=== PATIENT | male | born 1985 | race Caucasian/White ===

== ENCOUNTER 2019-07-18 18:24 | Emergency (ER) | payer SELFPAY ==
[2019-07-18] MEDS ORDERED: HYDROCODONE/APAP 10/325 TAB ONE (18:55)
--- NOTE | 2019-07-18 19:07 | RAD REPORT ---
EXAM DESCRIPTION: RAD - Elbow Left 3 View - 07/18/2019 6:59 pm CLINICAL HISTORY: PAIN COMPARISON: No comparisons FINDINGS: Radial head prosthesis is noted. There is mild lucency seen around the shaft of the prosth esis. This can indicate loosening in the correct clinical setting. Prominent arthritic changes are pr esent. No acute fracture seen.
--- NOTE | 2019-07-18 19:27 | ER ---
Nurse's Notes [facility] Name: Noam Christine Age: 34 yrs Sex: Male : 1985 Arrival Date: 07/18/2019 Time: 18:26 Bed 19 Private MD: Diagnosis: Pain in left elbow Presentation: 07/18 18:30 Presenting complaint: Patient states: "I was working at he house and I lifted something aa5 and did something to my left elbow". Transition of care: patient was not received from another setting of care. Onset of symptoms was July 18, 2019. Risk Assessment: Do you want to hurt yourself or someone else? Patient reports no desire to harm self or others. Initial Sepsis Screen: Does the patient meet any 2 criteria? HR > 90 bpm. Does the patient have a suspected source of infection? No. Patient's initial sepsis screen is negative. Care prior to arrival: None. 18:30 Acuity: YOHANA 3 aa5 18:30 Method Of Arrival: Ambulatory aa5 Triage Assessment: 19:10 Injury Description: left elbow pain. wh Historical: - Allergies: 18:32 No Known Allergies; aa5 - PMHx: 18:31 Hypertension; aa5 - PSHx: 18:31 left elbow; left foot; aa5 - Immunization history:: Adult Immunizations unknown. - Social history:: Smoking status: Patient uses tobacco products, smokes one-half pack cigarettes per day. - Ebola Screening: : No symptoms or risks identified at this time. Screenin:49 Abuse screen: Denies threats or abuse. Nutritional screening: No deficits noted. em Tuberculosis screening: No symptoms or risk factors identified. Fall Risk None identified. Assessment: 18:49 General: Appears in no apparent distress. uncomfortable, Behavior is calm, cooperative, em appropriate for age. Pain: Complains of pain in left antecubital area and left elbow Pain currently is 10 out of 10 on a pain scale. Quality of pain is described as sharp, shooting, Pain began 1 hour ago. Neuro: Level of Consciousness is awake, alert, obeys commands, Oriented to person, place, time, situation, Appropriate for age. Cardiovascular: Capillary refill < 3 seconds Patient's skin is warm and dry. Respiratory: Airway is patent Respiratory effort is even, unlabored, Respiratory pattern is regular, symmetrical. Derm: Skin is intact, is healthy with good turgor, Skin is pink, warm \\T\\ dry. Musculoskeletal: Capillary refill < 3 seconds, Range of motion: limited in left elbow. 19:44 Reassessment: Patient appears in no apparent distress at this time. No changes from previously documented assessment. Patient and/or family updated on plan of care and expected duration. Pain level reassessed. Patient is alert, oriented x 3, equal unlabored respirations, skin warm/dry/pink. Vital Signs: 18:31 BP 118 / 81; Pulse 114; Resp 18 S; Temp 98.7(TE); Pulse Ox 99% on R/A; Weight 84.37 kg aa5 (R); Height 5 ft. 7 in. (170.18 cm) (R); Pain 10/10; 19:43 BP 129 / 98; Pulse 93; Resp 18; Pulse Ox 99% on R/A; wh 18:31 Body Mass Index 29.13 (84.37 kg, 170.18 cm) aa5 ED Course: 18:26 Patient arrived in ED. mr 18:30 Arm band placed on. aa5 18:31 Triage completed. aa5 18:34 Jonhson Hull, RN is Primary Nurse. em 18:43 Rere Plunkett FNP-C is [facility]. kb 18:43 Finn La MD is Attending Physician. kb 18:49 Patient has correct armband on for positive identification. Bed in low position. Call em light in reach. 18:59 Elbow Left 3 View XRAY In Process Unspecified. EDMS 19:44 No provider procedures requiring assistance completed. Patient did not have IV access during this emergency room visit. Administered Medications: 18:56 Drug: [place] 10 mg-325 mg 1 tabs Route: PO; em 19:25 Follow up: Response: No adverse reaction; RASS: Alert and Calm (0) 19:44 Follow up: Response: No adverse reaction; Pain is decreased; RASS: Alert and Calm (0) Outcome: 19:26 Discharge ordered by . kb 19:44 Discharged to home ambulatory. 19:44 Condition: stable 19:44 Discharge instructions given to patient, Instructed on discharge instructions, follow up and referral plans. medication usage, POC Demonstrated understanding of instructions, follow-up care, medications, splint care, Prescriptions given X 1. 19:45 Patient left the ED. Signatures: Dispatcher [employer] Rere Gomez, ARIK GUADALUPE-Katherine Eric Edgar, RN RN Sarah Estrada RN RN aa5 Benjamin Meek
--- NOTE | 2019-07-18 19:28 | EDPHYS ---
Physician Documentation [facility] Name: Noam Christine Age: 34 yrs Sex: Male : 1985 Arrival Date: 07/18/2019 Time: 18:26 Bed 19 Private MD: ED Physician Finn La HPI: 07/18 19:25 This 34 yrs old Male presents to ER via Ambulatory with complaints of Arm kb Injury. 19:25 The patient or guardian complains of decreased range of motion, pain, swelling, kb tenderness. The complaints affect the left elbow. Context: The problem was sustained at home, outdoors, resulted from lifting or pulling, a heavy object. Onset: The symptoms/episode began/occurred just prior to arrival. Treatment prior to arrival includes: no previous treatment. Modifying factors: The symptoms are alleviated by nothing. the symptoms are aggravated by movement. Associated signs and symptoms: Pertinent positives: decreased range of motion, pain, swelling. Severity of symptoms: At their worst the symptoms were moderate, in the emergency department the symptoms are unchanged. The patient has not experienced similar symptoms in the past. The patient has not recently seen a physician. Pt states he was lifting heavy stuff in his backyard and felt a pop in elbow. . Historical: - Allergies: 18:32 No Known Allergies; aa5 - PMHx: 18:31 Hypertension; aa5 - PSHx: 18:31 left elbow; left foot; aa5 - Immunization history:: Adult Immunizations unknown. - Social history:: Smoking status: Patient uses tobacco products, smokes one-half pack cigarettes per day. - Ebola Screening: : No symptoms or risks identified at this time. ROS: 19:24 Constitutional: Negative for fever, chills, and weight loss, ENT: Negative for injury, kb pain, and discharge, Neck: Negative for injury, pain, and swelling, Cardiovascular: Negative for chest pain, palpitations, and edema, Respiratory: Negative for shortness of breath, cough, wheezing, and pleuritic chest pain, Abdomen/GI: Negative for abdominal pain, nausea, vomiting, diarrhea, and constipation, Skin: Negative for injury, rash, and discoloration, Neuro: Negative for headache, weakness, numbness, tingling, and seizure. 19:24 MS/extremity: Positive for injury or acute deformity, decreased range of motion, pain, swelling, tenderness, of the left elbow. Exam: 19:25 Constitutional: This is a well developed, well nourished patient who is awake, alert, kb and in no acute distress. Head/Face: Normocephalic, atraumatic. Neck: Trachea midline, no thyromegaly or masses palpated, and no cervical lymphadenopathy. Supple, full range of motion without nuchal rigidity, or vertebral point tenderness. No Meningismus. Chest/axilla: Normal chest wall appearance and motion. Nontender with no deformity. No lesions are appreciated. Cardiovascular: Regular rate and rhythm with a normal S1 and S2. No gallops, murmurs, or rubs. Normal PMI, no JVD. No pulse deficits. Respiratory: Lungs have equal breath sounds bilaterally, clear to auscultation and percussion. No rales, rhonchi or wheezes noted. No increased work of breathing, no retractions or nasal flaring. Abdomen/GI: Soft, non-tender, with normal bowel sounds. No distension or tympany. No guarding or rebound. No evidence of tenderness throughout. Skin: Warm, dry with normal turgor. Normal color with no rashes, no lesions, and no evidence of cellulitis. Neuro: Awake and alert, GCS 15, oriented to person, place, time, and situation. Cranial nerves II-XII grossly intact. Motor strength 5/5 in all extremities. Sensory grossly intact. Cerebellar exam normal. Normal gait. 19:25 Musculoskeletal/extremity: Extremities: grossly normal except: noted in the left elbow: decreased ROM, pain, swelling, tenderness, ROM: limited active range of motion due to pain, in the left elbow, Circulation is intact in all extremities. Sensation intact. Vital Signs: 18:31 BP 118 / 81; Pulse 114; Resp 18 S; Temp 98.7(TE); Pulse Ox 99% on R/A; Weight 84.37 kg aa5 (R); Height 5 ft. 7 in. (170.18 cm) (R); Pain 10/10; 19:43 BP 129 / 98; Pulse 93; Resp 18; Pulse Ox 99% on R/A; wh 18:31 Body Mass Index 29.13 (84.37 kg, 170.18 cm) aa5 MDM: 18:44 Patient medically screened. kb 19:23 Data reviewed: vital signs, nurses notes. Data interpreted: Pulse oximetry: on room air kb is 99 %. Interpretation: normal. Counseling: I had a detailed discussion with the patient and/or guardian regarding: the historical points, exam findings, and any diagnostic results supporting the discharge/admit diagnosis, radiology results, the need for outpatient follow up, a orthopedic surgeon, to return to the emergency department if symptoms worsen or persist or if there are any questions or concerns that arise at home. ED course: Pt will follow up with orthopedist in [place] that did original surgery on elbow. 07/18 18:45 Order name: Elbow Left 3 View XRAY; Complete Time: 19:15 em 07/18 19:22 Order name: Sling; Complete Time: 19:36 kb Administered Medications: 18:56 Drug: [place] 10 mg-325 mg 1 tabs Route: PO; em 19:25 Follow up: Response: No adverse reaction; RASS: Alert and Calm (0) 19:44 Follow up: Response: No adverse reaction; Pain is decreased; RASS: Alert and Calm (0) Disposition: 07/19 06:45 Co-signature as Attending Physician, Finn La MD I agree with the assessment and tw4 plan of care. Disposition: 07/18/19 19:26 Discharged to Home. Impression: Pain in left elbow. - Condition is Stable. - Discharge Instructions: Musculoskeletal Pain. - Prescriptions for Diclofenac Sodium 75 mg Oral Tablet, Delayed Release (E.C.) - take 1 tablet by ORAL route 2 times per day As needed; 30 tablet. - Medication Reconciliation Form, Thank You Letter, Antibiotic Education, Prescription Opioid Use form. - Follow up: Emergency Department; When: As needed; Reason: Worsening of condition. Follow up: Private Physician; When: 2 - 3 days; Reason: Recheck today's complaints, Continuance of care, Re-evaluation by your physician. Signatures: Dispatcher [employer] Rere Gomez, ARIK GUADALUPE-Johnson Christine, RN RN Sarah Estrada RN RN aaBenjamin Zhou Finn La MD MD tw4 Corrections: (The following items were deleted from the chart) 07/18 19:45 19:26 07/18/2019 19:26 Discharged to Home. Impression: Pain in left elbow. Condition is wh Stable. Forms are Medication Reconciliation Form, Thank You Letter, Antibiotic Education, Prescription Opioid Use. Follow up: Emergency Department; When: As needed; Reason: Worsening of condition. Follow up: Private Physician; When: 2 - 3 days; Reason: Recheck today's complaints, Continuance of care, Re-evaluation by your physician. kb
[2019-07-18 20:22] VITALS: TEMP 98.7; O2SAT 99
[2019-07-18 20:26] VITALS: BP 129/98
== END 2019-07-18 19:45 | disposition home or self-care (01) ==
LOC: ER 18:24
DX: M25.522 Pain in left elbow (principal); F17.210 Nicotine dependence, cigarettes, uncomplicated; X50.0XXA Overexertion from strenuous movement or load, initial encounter; Y93.89 Activity, other specified; Y92.096 Garden or yard of other non-institutional residence as the place of occurrence of the external cause
CPT/HCPCS: 99283

== ENCOUNTER → 2023-09-19 | Emergency (ER) | payer BC, SELFPAY ==
[~2023-09-19] MED LIST: HYDROCODONE/APAP 5/325 MG TAB ONE
--- NOTE | 2023-09-19 04:52 | EDPHYS ---
Physician Documentation [facility] Name: Noam Christine Age: 38 yrs Sex: Male : 1985 Arrival Date: 09/19/2023 Time: 04:38 Bed IW1 Private MD: ED Physician Matt Melchor HPI: 09/18 05:02 This 38 yrs old Male presents to ER via Unassigned with complaints of Toothache, Pain. ms3 05:02 38-year-old male with no past medical history presents to the emergency department for ms3 right upper front tooth pain that has been ongoing for 3 days. Patient states pain is 10/10. Patient denies any alleviating or inciting factors. Patient denies fevers, chills, nausea, vomiting, difficulty breathing.. Historical: - Allergies: 05:14 No Known Allergies; vc1 - Home Meds: 05:14 None [Active]; vc1 - PMHx: 05:14 Hypertension; vc1 - PSHx: 05:14 left foot (Hypertension); left elbow (Hypertension); vc1 - Immunization history:: Client reports receiving the 2nd dose of the Covid vaccine. - Social history:: Smoking status: Patient reports the use of cigarette tobacco products, 1/ PPD. ROS: 05:02 Constitutional: Negative for fever, and chills. ms3 05:02 Cardiovascular: Negative for chest pain, and palpitations. Respiratory: Negative for shortness of breath, cough, wheezing, and pleuritic chest pain, Abdomen/GI: Negative for abdominal pain, nausea, vomiting, diarrhea, and constipation, MS/Extremity: Negative for injury and deformity, Skin: Negative for injury, rash, and discoloration, 05:02 ENT: Positive for Teeth pain Exam: 05:02 Constitutional: This is a well developed, well nourished patient who is awake, alert, ms3 and in no acute distress. Head/Face: Normocephalic, atraumatic. Neck: Trachea midline, no cervical lymphadenopathy. Supple, full range of motion without nuchal rigidity, or vertebral point tenderness. No Meningismus. Chest/axilla: Normal chest wall appearance and motion. Nontender with no deformity. Cardiovascular: Regular rate and rhythm with a normal S1 and S2. No gallops, murmurs, or rubs. Normal PMI, no JVD. No pulse deficits. Respiratory: Lungs have equal breath sounds bilaterally, clear to auscultation and percussion. No rales, rhonchi or wheezes noted. No increased work of breathing, no retractions or nasal flaring. Abdomen/GI: Soft, non-tender, with normal bowel sounds. No distension or tympany. No guarding or rebound. No evidence of tenderness throughout. 05:02 ENT: Dental exam: dental caries, that is moderate, specifically in the upper right central incisor (#8), Vital Signs: 05:11 BP 141 / 101; Pulse 88; Resp 18; Temp 98.1; Pulse Ox 100% ; Weight 94.35 kg; Height 5 vc1 ft. 9 in. ; Pain 04/20; 05:11 Body Mass Index 30.72 (94.35 kg, 175.26 cm) vc1 05:11 Pain Scale: Adult vc1 MDM: 04:50 Patient medically screened. ms3 05:02 Differential diagnosis: dental caries, dental abscess. Data reviewed: vital signs, ms3 nurses notes, and as a result, I will discharge patient. I considered the following discharge prescriptions or medication management in the emergency department Medications were administered in the Emergency Department. See MAR. Counseling: I had a detailed discussion with the patient and/or guardian regarding the historical points, exam findings, and any diagnostic results supporting the discharge/admit diagnosis, the need for outpatient follow up, to return to the emergency department if symptoms worsen or persist or if there are any questions or concerns that arise at home. Special discussion: I discussed with the patient/guardian in detail that at this point there is no indication for admission to the hospital. It is understood, however, that if the symptoms persist or worsen the patient needs to return immediately for re-evaluation. ED course: Discussed treatment plan with patient patient understands and agrees with plan. Patient to follow-up Dr. Dunham in 1 to 2 days. Patient understands and agrees with plan. All questions were answered. Return precautions discussed include worsening symptoms, or any other concerns. Administered Medications: 05:02 CANCELLED (Physician Discretion): penicillin vk500 mg PO once ms3 05:10 Drug: HYDROcodone-acetaminophen PO 5 mg-325 mg 1 tabs PO once Route: PO; vc1 05:10 Follow up: Response: Medication administered at discharge. vc1 05:10 Drug: Clindamycin PO 300 mg PO once Route: PO; vc1 05:10 Follow up: Response: Medication administered at discharge. vc1 Disposition Summary: 09/19/23 04:52 Discharge Ordered Notes: Location: Home ms3 Condition: Stable ms3 Diagnosis - Dental pain ms3 - Dental Dipika ms3 Followup: ms3 - With: Mian Dunham DDS - When: 1 - 2 days - Reason: Recheck today's complaints Discharge Instructions: - Discharge Summary Sheet ms3 - Dental Pain, [id number] ms3 Forms: - Medication Reconciliation Form ms3 - Thank You Letter ms3 - Antibiotic Education ms3 - Prescription Opioid Use ms3 - Patient Portal Instructions ms3 - Leadership Thank You Letter ms3 Prescriptions: - Clindamycin HCl 300 mg Oral capsule - take 1 capsule ORAL route every 8 hours for 7 days; 21 capsule; Refills: 0, ms3 Product Selection Permitted - Ibuprofen 600 mg Oral Tablet - take 1 tablet ORAL route every 6 hours As needed take with food; 30 tablet; ms3 Refills: 0, Product Selection Permitted Signatures: Matt Melchor DO DO ms3 Franca Reyes RN RN vc1 Corrections: (The following items were deleted from the chart) 05:02 04:51 penicillin VK PO 500 mg PO once ordered. ms3 ms3 05:02 05:02 penicillin VK PO 500 mg PO once ordered. ms3 ms3
--- NOTE | 2023-09-19 05:20 | ER ---
Nurse's Notes [facility] Name: Noam Christine Age: 38 yrs Sex: Male : 1985 Arrival Date: 09/19/2023 Time: 04:38 Bed IW1 Private MD: Diagnosis: Dental pain;Dental Dipika Presentation: 09/18 05:11 Chief complaint: Patient states: My front right tooth has been hurting for the past 3 vc1 days. Tonight it hurts so bad I can't sleep. Water helps for a few minutes then it starts hurting again. Coronavirus screen: Vaccine status: Patient reports being unvaccinated. Client denies travel out of the [place] in the last 14 days. At this time, the client does not indicate any symptoms associated with coronavirus-19. Ebola Screen: Patient negative for fever greater than or equal to 101.5 degrees Fahrenheit, and additional compatible Ebola Virus Disease symptoms Patient denies exposure to infectious person. Patient denies travel to an Ebola-affected area in the 21 days before illness onset. No symptoms or risks identified at this time. Initial Sepsis Screen: Does the patient meet any 2 criteria? No. Patient's initial sepsis screen is negative. Does the patient have a suspected source of infection? No. Patient's initial sepsis screen is negative. Risk Assessment: Do you want to hurt yourself or someone else? Patient reports no desire to harm self or others. Onset of symptoms was September 19, 2023. 05:11 Method Of Arrival: Ambulatory vc1 05:11 Acuity: YOHANA 4 vc1 Triage Assessment: 05:15 General: Appears in no apparent distress. uncomfortable, Behavior is calm, cooperative, vc1 appropriate for age. Pain: Complains of pain in upper right central incisor (#8) Pain does not radiate. Pain currently is 10 out of 10 on a pain scale. Quality of pain is described as sharp, throbbing, Pain began 2-3 days ago. Is continuous, Alleviated by water Noted to be grimacing, Also complains of nausea. EENT: Reports pain in upper right central incisor (#8) Pain is 10 out of 10 on a pain scale. Neuro: Level of Consciousness is awake, alert, obeys commands, Oriented to person, place, time, situation, Appropriate for age. Cardiovascular: No deficits noted. Heart tones S1 S2. Respiratory: Airway is patent Respiratory effort is even, unlabored, Respiratory pattern is regular, symmetrical. GI: No deficits noted. No signs and/or symptoms were reported involving the gastrointestinal system. : No deficits noted. No signs and/or symptoms were reported regarding the genitourinary system. Derm: No deficits noted. No signs and/or symptoms reported regarding the dermatologic system. Musculoskeletal: No deficits noted. No signs and/or symptoms reported regarding the musculoskeletal system. Historical: - Allergies: 05:14 No Known Allergies; vc1 - Home Meds: 05:14 None [Active]; vc1 - PMHx: 05:14 Hypertension; vc1 - PSHx: 05:14 left foot (Hypertension); left elbow (Hypertension); vc1 - Immunization history:: Client reports receiving the 2nd dose of the Covid vaccine. - Social history:: Smoking status: Patient reports the use of cigarette tobacco products, 1/4 PPD. Screenin:18 [facility] ED Fall Risk Assessment (Adult) History of falling in the last 3 months, vc1 including since admission No falls in past 3 months (0 pts) Confusion or Disorientation No (0 pts) Intoxicated or Sedated No (0 pts) Impaired Gait No (0 pts) Mobility Assist Device Used No (0 pt) Altered Elimination No (0 pt) Score/Fall Risk Level 0 - 2 = Low Risk Oriented to surroundings, Maintained a safe environment, Educated pt \T\ family on fall prevention, incl call for assistance when getting out of bed. Abuse screen: Denies threats or abuse. Nutritional screening: No deficits noted. Tuberculosis screening: No symptoms or risk factors identified. Assessment: 05:17 General: See triage assessment. vc1 Vital Signs: 05:11 BP 141 / 101; Pulse 88; Resp 18; Temp 98.1; Pulse Ox 100% ; Weight 94.35 kg; Height 5 vc1 ft. 9 in. ; Pain 10; 05:11 Body Mass Index 30.72 (94.35 kg, 175.26 cm) vc1 05:11 Pain Scale: Adult vc1 ED Course: 04:42 Patient arrived in ED. gm2 04:49 Arm band placed on right wrist. vc1 04:49 Patient has correct armband on for positive identification. in triage. vc1 04:50 Matt Melchor DO is Attending Physician. ms3 04:51 Mian Dunham DDS is Referral Physician. ms3 05:14 Triage completed. vc1 05:18 No provider procedures requiring assistance completed. Patient did not have IV access vc1 during this emergency room visit. 05:19 Provided Education on: complete entire round of abx, f/u with dentist. vc1 Administered Medications: 05:02 CANCELLED (Physician Discretion): penicillin vk500 mg PO once ms3 05:10 Drug: HYDROcodone-acetaminophen PO 5 mg-325 mg 1 tabs PO once Route: PO; vc1 05:10 Follow up: Response: Medication administered at discharge. vc1 05:10 Drug: Clindamycin PO 300 mg PO once Route: PO; vc1 05:10 Follow up: Response: Medication administered at discharge. vc1 Medication: 05:19 VIS not applicable for this client. vc1 Outcome: 04:52 Discharge ordered by MD. ms3 05:18 Discharged to home ambulatory, vc1 05:18 Condition: good 05:18 Discharge instructions given to patient, Instructed on discharge instructions, follow up and referral plans. medication usage, Demonstrated understanding of instructions, follow-up care, medications, Prescriptions given X 2, 05:19 Patient left the ED. vc1 Signatures: Matt Melchor DO DO ms3 Franca Reyes RN RN vc1 Adriana Novak 2
[2023-09-19 05:25] VITALS: BP 141/101; TEMP 98.1; O2SAT 100
== END ==
LOC: ER 04:38
DX: K02.9 Dental caries, unspecified (principal); F17.210 Nicotine dependence, cigarettes, uncomplicated
CPT/HCPCS: 99283

== ENCOUNTER 2024-06-25 12:07 | Emergency (ER) | payer BC, OTHER, SELFPAY ==
[2024-06-25 12:43] LABS: Absolute Basophils 0.1 K/uL (0-0.5); Absolute Eosinophils 0.1 K/uL (0-0.5); Absolute Lymphocytes (CBC) 3.8 K/uL (0.7-4.9); Absolute Monocytes 0.5 K/uL (0.1-1.3); Absolute Neutrophil 3.5 K/uL (1.8-8.0); Basophils % 1.4 % (0-1.3); Eosinophils % 1.8 % (0-4.4); Hematocrit 45.5 % (39.6-49.0); Hemoglobin 15.4 g/dL (13.6-17.9); Lymphocytes % 47.2 % (15.3-44.8); MCH 28.9 pg (27.0-35.0); MCHC 33.9 g/dL (32.0-36.0); MCV 85.4 fL (80-100); MPV 9.4 fL (7.6-11.3); Monocytes % 5.7 % (3.3-12.3); Neutrophils % 43.9 % (41.7-73.7); Nucleated Red Blood Cells % 0.1 % (0-0); Platelets 239 thou/uL (152-406); RBC Red Blood Cell Count 5.33 M/uL (4.33-5.43); Red Cell Distribution Width 13.4 % (12.1-15.2)
[2024-06-25 12:44] LABS: PT Prothrombin Time 12.1 SECONDS (9.4-12.5); Protime INR 1.08
[2024-06-25 12:56] LABS: Anion Gap 10.7 mEq/L (5.0-15.0); BUN Blood Urea Nitrogen 9 mg/dL (7-18); Bicarbonate 24 mEq/L (21-32); Glomerular Filtration Rate 96 ml/min (=/>90); Glucose Level 122 mg/dL (74-106); Potassium 3.7 mEq/L (3.5-5.1); Sodium Level 137 mEq/L (136-145)
[2024-06-25 12:57] LABS: Troponin High Sensitivity < 3.0 pg/mL (<58.9)
--- NOTE | 2024-06-25 13:52 | RAD REPORT ---
Procedure: Chest Single View HISTORY: Chest pain COMPARISON: none FINDINGS: The lungs appear clear of acute infiltrate. No significant pleural effusion noted. The heart is normal size. IMPRESSION: No acute abnormality is displayed.
--- NOTE | 2024-06-25 15:05 | EDPHYS ---
Physician Documentation [facility] Name: Noam Christine Age: 39 yrs Sex: Male : 1985 Arrival Date: 06/25/2024 Time: 12:07 Bed 16 Private MD: ED Physician Robert Marquez HPI: 06/25 14:54 This 39 yrs old Male presents to ER via Ambulatory with complaints of Chest Pain. bo1 14:54 The patient or guardian reports chest pain that is located primarily in the substernal bo1 area, epigastric area. Onset: suddenly, today, While watching TV. The pain does not radiate. Associated signs and symptoms: Pertinent positives: dizziness, lightheadedness. The chest pain is described as sharp. Duration: The patient or guardian reports a single episode, that is now resolved, that lasted an unknown period of time. Modifying factors: The symptoms are alleviated by nothing. the symptoms are aggravated by nothing. 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 Hx of HTN, labile with increased HR. Historical: - Allergies: 12:12 No Known Allergies; ll1 - PMHx: 12:12 Hypertension; ll1 - PSHx: 12:12 left elbow (en); left foot (en); ll1 - Immunization history:: Adult Immunizations up to date. - Social history:: Smoking status: Patient reports the use of cigarette tobacco products, smokes one-half pack cigarettes per day. ROS: 14:57 Constitutional: Negative for fever, chills, and weight loss bo1 14:57 Constitutional: Negative for fever, weight loss, 14:57 Neck: Negative for pain with movement, pain at rest, 14:57 Cardiovascular: Positive for chest pain, palpitations, 14:57 Respiratory: Positive for Increased respiratory breathing and hyperventilation, 14:57 Abdomen/GI: Negative for abdominal pain, nausea and vomiting, 14:57 Skin: Positive for diaphoresis, clammy, 14:57 Neuro: Negative for altered mental status, 14:57 All other systems are negative, Exam: 14:59 Constitutional: This is a well developed, well nourished patient who is awake, alert, bo1 and in no acute distress. 14:59 Constitutional: The patient appears alert, awake, comfortable, non-toxic, 14:59 Head/face: Exam is negative for acute changes, 14:59 Neck: Exam negative for acute changes, 14:59 Chest/axilla: Exam negative for Inspection: normal, no acute changes, 14:59 Cardiovascular: Rate: normal, Now 72 on monitor, was 111 when EKG was done. BP has come down too, 14:59 ECG was reviewed by the Attending Physician. Vital Signs: 12:12 BP 188 / 106; Pulse 135; Resp 24; Temp 97.2; Pulse Ox 100% ; Weight 95.25 kg; Height 5 ll1 ft. 9 in. ; Pain 9/10; 12:24 BP 149 / 100; Pulse 110; Resp 20; Pulse Ox 97% on R/A; Pain 9/10; iw 12:54 BP 151 / 98; Pulse 92; Resp 16; Pulse Ox 98% on R/A; iw 14:40 BP 116 / 79; Pulse 72; Resp 16; Pulse Ox 98% on R/A; Pain 5/10; iw 12:12 Body Mass Index 31.01 (95.25 kg, 175.26 cm) ll1 12:12 Pain Scale: Adult ll1 12:24 Pain Scale: Adult iw 14:40 Pain Scale: Adult iw MDM: 12:44 Medical Screening Exam initiated bo1 15:01 Data reviewed: vital signs, lab test result(s), EKG, radiologic studies, plain films. bo1 15:01 ED course: Spouse present, discussed pt's panic attack/anxiety issues, smoking risks bo1 1.5 ppd sleep apneic symptoms FHx of diabetes and prediabetic condition. Agrees to lifestyle changes and f/u with PCP with return PRN. Need OP stress testing etc. 15:03 Differential diagnosis: anxiety, coronary artery disease. bo1 06/25 12:23 Order name: Basic Metabolic Panel; Complete Time: 13:06 iw 06/25 12:23 Order name: CBC with Diff; Complete Time: 13:06 iw 06/25 12:23 Order name: Troponin HS; Complete Time: 13:06 iw 06/25 12:25 Order name: PT-INR; Complete Time: 13:06 iw 06/25 12:23 Order name: XRAY Chest (1 view); Complete Time: 14:27 iw 06/25 12:23 Order name: EKG; Complete Time: 12:23 iw 06/25 12:23 Order name: Cardiac monitoring; Complete Time: 12 iw 06/25 12:23 Order name: EKG - Nurse/Tech; Complete Time: iw 06/25 12:23 Order name: IV Saline Lock; Complete Time: 12 06/25 12:23 Order name: Labs collected and sent; Complete Time: 1254 iw 06/25 12:23 Order name: O2 Per Protocol; Complete Time: iw 06/25 12:23 Order name: O2 Sat Monitoring; Complete Time: : iw EC:59 Rate is 111 beats/min. Rhythm is regular. QRS [place] is Normal. MT interval is normal. bo1 QRS interval is normal. QT interval is normal. No Q waves. T waves are Normal. No ST changes noted. Clinical impression: Normal ECG and PVCs-unifocal. Interpreted by me. Reviewed by me. Administered Medications: No medications were administered Disposition Summary: 06/25/24 15:04 Discharge Ordered Notes: Location: Home bo1 Problem: new bo1 Symptoms: are resolved bo1 Condition: Stable bo1 Diagnosis - Chest pain, unspecified bo1 - Tobacco use bo1 Followup: bo1 - With: Private Physician - When: Upon discharge from the Emergency Department - Reason: Recheck today's complaints, Continuance of care Discharge Instructions: - Discharge Summary Sheet bo1 - Nonspecific Chest Pain, Adult bo1 Forms: - Medication Reconciliation Form bo1 - Antibiotic Education bo1 - Prescription Opioid Use bo1 - Patient Portal Instructions bo1 - Leadership Thank You Letter bo1 Signatures: Dispatcher [employer] Giovanna Ellison, JUAN MARTINEZ Yael Goldstein RN RN [facility] Robert Marquez MD MD bo1
--- NOTE | 2024-06-25 15:05 | ER ---
Nurse's Notes [facility] Name: Noam Christine Age: 39 yrs Sex: Male : 1985 Arrival Date: 06/25/2024 Time: 12:07 Bed 16 Private MD: Diagnosis: Chest pain, unspecified;Tobacco use Presentation: 06/25 12:12 Chief complaint: Patient states: CP for 3 days with SOB, worse today. Coronavirus ll1 screen: Client denies travel out of the [place] in the last 14 days. difficulty breathing, shortness of breath, Client presents with at least one sign or symptom that may indicate coronavirus-19. Standard/surgical mask placed on the client. Ebola Screen: Patient denies travel to an Ebola-affected area in the 21 days before illness onset. Initial Sepsis Screen: Does the patient meet any 2 criteria? No. Patient's initial sepsis screen is negative. Does the patient have a suspected source of infection? No. Patient's initial sepsis screen is negative. Risk Assessment: Do you want to hurt yourself or someone else? Patient reports no desire to harm self or others. Onset of symptoms was June 25, 2024. 12:12 Method Of Arrival: Ambulatory ll1 12:12 Acuity: YOHANA 2 ll1 Triage Assessment: 12:13 General: Appears distressed, uncomfortable, Behavior is cooperative, appropriate for ll1 age, anxious. Pain: Complains of pain in chest Quality of pain is described as aching, pressure. Cardiovascular: Reports chest pain, shortness of breath. Respiratory: Reports shortness of breath. Historical: - Allergies: 12:12 No Known Allergies; ll1 - PMHx: 12:12 Hypertension; ll1 - PSHx: 12:12 left elbow (en); left foot (en); ll1 - Immunization history:: Adult Immunizations up to date. - Social history:: Smoking status: Patient reports the use of cigarette tobacco products, smokes one-half pack cigarettes per day. Screenin:08 [facility] ED Fall Risk Assessment (Adult) History of falling in the last 3 months, iw including since admission No falls in past 3 months (0 pts) Confusion or Disorientation No (0 pts) Intoxicated or Sedated No (0 pts) Impaired Gait No (0 pts) Mobility Assist Device Used No (0 pt) Altered Elimination No (0 pt) Score/Fall Risk Level 0 - 2 = Low Risk Oriented to surroundings. Abuse screen: Denies threats or abuse. Nutritional screening: No deficits noted. Tuberculosis screening: No symptoms or risk factors identified. Assessment: 12:10 General: Appears uncomfortable, Behavior is calm, cooperative. Pain: Complains of pain iw in chest Pain currently is 9 out of 10 on a pain scale. Neuro: Level of Consciousness is awake, alert, obeys commands, Oriented to person, place, time, situation, Moves all extremities. Cardiovascular:. Respiratory: Respiratory effort is even, unlabored. GI: Abdomen is flat, non-distended. Derm: Skin is intact, is healthy with good turgor. 12:56 Cardiovascular: Reports chest pain, palpitations, shortness of breath. Musculoskeletal: iw Range of motion: intact in all extremities. 13:07 Reassessment: Patient appears in no apparent distress at this time. notified of iw pt orders in place and results in computer. 13:50 Reassessment: Patient appears in no apparent distress at this time. pt more relaxed but iw still c/o chest pain. 14:30 Reassessment: Dr. Marquez at bedside to assess pt. iw 14:55 Reassessment: Dr. Marquez reports he will discharge pt home, pt feeling better, understands iw discharge plan of care. Vital Signs: 12:12 BP 188 / 106; Pulse 135; Resp 24; Temp 97.2; Pulse Ox 100% ; Weight 95.25 kg; Height 5 ll1 ft. 9 in. ; Pain 9/10; 12:24 BP 149 / 100; Pulse 110; Resp 20; Pulse Ox 97% on R/A; Pain 9/10; iw 12:54 BP 151 / 98; Pulse 92; Resp 16; Pulse Ox 98% on R/A; iw 14:40 BP 116 / 79; Pulse 72; Resp 16; Pulse Ox 98% on R/A; Pain 5/10; iw 12:12 Body Mass Index 31.01 (95.25 kg, 175.26 cm) ll1 12:12 Pain Scale: Adult ll1 12:24 Pain Scale: Adult iw 14:40 Pain Scale: Adult iw ED Course: 12:11 Patient arrived in ED. ll1 12:12 Arm band placed on Patient placed in an exam room, on a stretcher. ll1 12:12 Client placed on continuous cardiac and pulse oximetry monitoring. NIBP monitoring iw applied. panel monitor on. 12:13 Triage completed. ll1 12:22 Giovanna Moreland RN is Primary Nurse. iw 12:23 held in ED. Inserted saline lock: 20 gauge in right antecubital area, using aseptic iw technique. Blood collected. Flushed with 10 mL NS. 12:44 Robert Marquez MD is Attending Physician. bo1 13:46 XRAY Chest (1 view) In Process Unspecified. EDMS 13:50 Patient has correct armband on for positive identification. Bed in low position. Side iw rails up X2. 15:30 No provider procedures requiring assistance completed. IV discontinued, intact, iw bleeding controlled, No redness/swelling at site. Pressure dressing applied. Administered Medications: No medications were administered Medication: 13:08 VIS not applicable for this client. iw Outcome: 15:04 Discharge ordered by MD. bo1 15:35 Discharged to home ambulatory, iw 15:35 Condition: good 15:35 Discharge instructions given to patient, Instructed on discharge instructions, follow up and referral plans. Demonstrated understanding of instructions, follow-up care, 15:36 Patient left the ED. iw Signatures: Dispatcher [employer] EDCT Giovanna Moreland RN RN iw Yael Goldstein RN RN ll1 Robert Marquez MD MD bo1 Corrections: (The following items were deleted from the chart) 12:57 12:10 Derm: Skin is fragile, is thin, with poor turgor iw iw 12:57 12:10 GI: Abdomen is distended, Pt is actively vomiting stool Reports lower abdominal iw pain, upper abdominal pain, constipation, nausea, vomiting, iw
[2024-06-25 16:00] VITALS: TEMP 97.2
[2024-06-25 16:07] VITALS: O2SAT 98
[2024-06-25 16:09] VITALS: BP 116/79
== END 2024-06-25 15:36 | disposition home or self-care (01) ==
LOC: ER 12:07
DX: R07.9 Chest pain, unspecified (principal); Z72.0 Tobacco use
CPT/HCPCS: 36415; 71045; 80048; 84484; 85025; 85610; 99284